=== PATIENT | female | born 1980 | race Two or more races ===

== ENCOUNTER 2016-11-11 15:05 | Emergency (ER) | payer SELFPAY ==
[2016-11-11 16:00] LABS: OBC FLU VALID
[2016-11-11 16:58] LABS: BASO # 0.1 x10^3/uL (0.0-0.2); BASO % 1 % (0-3); EOS % 0 % (0-3); HEMATOCRIT 38.3 % (36.0-47.0); HEMOGLOBIN 12.8 g/dL (12.0-15.5); LYMPH # 0.9 x10^3/uL (1.0-4.8); LYMPH % 6 % (24-48); MEAN CORPUSCULAR HEMOGLOBIN 29 pg (25-35); MEAN CORPUSCULAR HGB CONC 34 g/dL (31-37); MEAN CORPUSCULAR VOLUME 85 fL (79-100); MONO % 5 % (0-9); NEUT % 88 % (31-73); PLATELET COUNT 184 x10^3/uL (140-400); RED BLOOD COUNT 4.48 x10^6/uL (3.50-5.40); RED CELL DISTRIBUTION WIDTH 13.1 % (11.5-14.5); WHITE BLOOD COUNT 13.9 x10^3/uL (4.0-11.0)
[2016-11-11] MEDS ORDERED: IV NORMAL SALINE 1000ML BAG 1,000 ML IV ONE (17:00)
[2016-11-11] MEDS ORDERED: METOCLOPRAMIDE HCL 10 MG/2 ML VIAL. IV ONE (17:00)
[2016-11-11] MEDS ORDERED: KETOROLAC TROMETHAMINE 30 MG/ML SYRINGE. IV ONE (17:00)
[2016-11-11] MEDS ORDERED: DEXAMETHASONE SOD PHOS 20 MG/5 ML VIAL. IV ONE (17:00)
[2016-11-11] MEDS ORDERED: DIPHENHYDRAMINE 50 MG/ML VIAL IVP ONE (17:00)
[2016-11-11 17:13] LABS: CREATININE 0.8 mg/dL (0.6-1.0); GFR 81.2; POTASSIUM 4.2 mmol/L (3.5-5.1)
[2016-11-11 17:32] LABS: BILIRUBIN,URINE NEGATIVE (NEG); GLUCOSE,URINE NEGATIVE (NEG); NITRITE,URINE NEGATIVE (NEG); PH,URINE 7.5; PROTEIN,URINE NEGATIVE (NEG-TRACE); UROBILINOGEN,URINE 0.2 mg/dL (0.2 mg/dL)
[2016-11-11 17:42] LABS: BACTERIA,URINE FEW /HPF (0-FEW); SQUAMOUS EPITHELIAL CELL,UR MOD /LPF
[2016-11-11 17:43] LABS: NEG OBC UR NEG; POS OBC UR POS
[2016-11-11 17:53] LABS: % BASOS 1 % (0-3); PLT ESTIMATE ADEQUATE (ADEQUATE)
--- NOTE | 2016-11-11 18:04 | RAD ---
PROCEDURE CT scan of the head without contrast 11/11/2016 HISTORY Severe headache with dizziness and lightheadedness since earlier today. TECHNIQUE Unenhanced contiguous, 5 millimeter axial sections were obtained through the head. One or more of the following individualized dose reduction techniques were utilized for this study: 1. Automated exposure control. 2. Adjustment of the mA and/or kV according to patient size. 3. Use of iterative reconstruction technique. FINDINGS Comparison study is dated 02/04/2007. The ventricles and sulci are within normal limits in size and configuration. No area of abnormal attenuation is seen involving the brain parenchyma. No extra-axial fluid collection is seen. No skull fracture is noted. Mild to moderate mucosal thickening is seen involving the right maxillary sinus. IMPRESSION No acute intracranial abnormality is seen. Electronically signed by: Garcia Petty MD (Nov 11, 2016 18:03:07)
[2016-11-11 18:57] VITALS: BP 105/55
[2016-11-11] MEDS ORDERED: IBUP-1060 PO (19:01)
[2016-11-11] MEDS ORDERED: HYDR-971 PO (19:01)
[2016-11-11] MEDS ORDERED: ONDA4TAB7 PO (19:01)
--- NOTE | 2016-11-11 19:01 | PHYS DOC ---
Past Medical History Past Medical History: No Pertinent History Past Surgical History: Other Additional Past Surgical Histo: leep procedure Alcohol Use: Occasionally Drug Use: None Adult General Chief Complaint Chief Complaint: DIZZY/LIGHT HEADED HPI HPI 36-year-old female who's had worsening headache throughout the day with multiple episodes of nausea and photophobia. She states she believes she had an episode like this about 5 years ago as well that resolved. She does not normally have significant migraine headaches. States she has body aches as well. She complains of subjective fever and chills. She denies any chest pain or shortness of breath. Patient is alert and oriented and able answer all my questions does not appear to be in any acute distress. She denies any significant health problems. Review of Systems Review of Systems Constitutional: Has fever and chills [] Eyes: Denies change in visual acuity, redness, or eye pain [] HENT: Denies nasal congestion or sore throat [] Respiratory: Denies cough or shortness of breath [] Cardiovascular: No additional information not addressed in HPI [] GI: Denies abdominal pain, has nausea, has vomiting, denies bloody stools or diarrhea [] : Denies dysuria or hematuria [] Musculoskeletal: Denies back pain or joint pain [] Integument: Denies rash or skin lesions [] Neurologic: Has headache, denies focal weakness, denies sensory changes [] Endocrine: Denies polyuria or polydipsia [] Current Medications Current Medications Current Medications Medications (Trade) Dose Ordered Sig/[facility] Start Time Stop Time Status Last Admin Dose Admin Dexamethasone Sodium Phosphate (Decadron) 10 mg 1X ONCE 11/11/16 17:00 11/11/16 17:01 DC 11/11/16 17:09 10 MG Diphenhydramine HCl (Benadryl) 25 mg 1X ONCE 11/11/16 17:00 11/11/16 17:01 DC 11/11/16 17:04 25 MG Ketorolac Tromethamine (Toradol) 30 mg 1X ONCE 11/11/16 17:00 11/11/16 17:01 DC 11/11/16 17:12 30 MG Metoclopramide HCl (Reglan) 10 mg 1X ONCE 11/11/16 17:00 11/11/16 17:01 DC 11/11/16 17:05 10 MG Sodium Chloride (Iv Sodium Chloride 0.9% 1000ml Bag) 1,000 ml @ 1,000 mls/hr 1X ONCE 11/11/16 17:00 11/11/16 17:59 DC 11/11/16 17:03 1,000 MLS/HR Allergies Allergies Allergies Coded Allergies Type Severity Reaction Last Updated Verified No Known Drug Allergies 04/17/15 No Physical Exam Physical Exam Constitutional: Well developed, well nourished, no acute distress, non-toxic appearance. [] HENT: Normocephalic, atraumatic, bilateral external ears normal, oropharynx moist, no oral exudates, nose normal. [] Eyes: PERRLA, EOMI, conjunctiva normal, no discharge. [] Neck: Normal range of motion, no tenderness, supple, no stridor. [] Cardiovascular:Heart rate regular rhythm, no murmur [] Lungs & Thorax: Bilateral breath sounds clear to auscultation [] Abdomen: Bowel sounds normal, soft, no tenderness, no masses, no pulsatile masses. [] Skin: Warm, dry, no erythema, no rash. [] Back: No tenderness, no CVA tenderness. [] Extremities: No tenderness, no cyanosis, no clubbing, ROM intact, no edema. [] Neurologic: Alert and oriented X 3, normal motor function, normal sensory function, no focal deficits noted. [] Psychologic: Affect normal, judgement normal, mood normal. [] Current Patient Data Vital Signs Vital Signs Date Time Temp Pulse Resp B/P Pulse Ox O2 Delivery O2 Flow Rate FiO2 11/11/16 18:57 107 16 105/55 98 Room Air 11/11/16 15:20 99.6 99.6 Lab Values Laboratory Tests Test 11/11/16 15:30 11/11/16 16:45 11/11/16 17:25 11/11/16 17:29 Influenza Type A Antigen Negative (NEGATIVE) Influenza Type B Antigen Negative (NEGATIVE) White Blood Count 13.9x10^3/uL (4.0-11.0) H Red Blood Count 4.48x10^6/uL (3.50-5.40) Hemoglobin 12.8g/dL (12.0-15.5) Hematocrit 38.3% (36.0-47.0) Mean Corpuscular Volume 85fL (79-100) Mean Corpuscular Hemoglobin 29pg (25-35) Mean Corpuscular Hemoglobin Concent 34g/dL (31-37) Red Cell Distribution Width 13.1% (11.5-14.5) Platelet Count 184x10^3/uL (140-400) Neutrophils (%) (Auto) 88% (31-73) H Lymphocytes (%) (Auto) 6% (24-48) L Monocytes (%) (Auto) 5% (0-9) Eosinophils (%) (Auto) 0% (0-3) Basophils (%) (Auto) 1% (0-3) Neutrophils # (Auto) 12.2x10^3uL (1.8-7.7) H Lymphocytes # (Auto) 0.9x10^3/uL (1.0-4.8) L Monocytes # (Auto) 0.7x10^3/uL (0.0-1.1) Eosinophils # (Auto) 0.0x10^3/uL (0.0-0.7) Basophils # (Auto) 0.1x10^3/uL (0.0-0.2) Segmented Neutrophils % 79% (35-66) H Band Neutrophils % 8% (0-9) Lymphocytes % 7% (24-48) L Monocytes % 5% (0-10) Basophils % 1% (0-3) Platelet Estimate Adequate (ADEQUATE) Sodium Level 137mmol/L (136-145) Potassium Level 4.2mmol/L (3.5-5.1) Chloride Level 100mmol/L (98-107) Carbon Dioxide Level 26mmol/L (21-32) Anion Gap 11 (6-14) Blood Urea Nitrogen 9mg/dL (7-20) Creatinine 0.8mg/dL (0.6-1.0) Estimated GFR (Cockcroft-Gault) 81.2 Glucose Level 109mg/dL (70-99) H Calcium Level 9.0mg/dL (8.5-10.1) Urine Collection Type Unknown Urine Color Yellow Urine Clarity Clear Urine pH 7.5 Urine Specific Howard 1.015 Urine Protein Negativemg/dL (NEG-TRACE) Urine Glucose (UA) Negativemg/dL (NEG) Urine Ketones (Stick) Negativemg/dL (NEG) Urine Blood Small (NEG) Urine Nitrite Negative (NEG) Urine Bilirubin Negative (NEG) Urine Urobilinogen Dipstick 0.2mg/dL (0.2 mg/dL) Urine Leukocyte Esterase Trace (NEG) Urine RBC 11-20/HPF (0-2) Urine WBC 1-4/HPF (0-4) Urine Squamous Epithelial Cells Mod/LPF Urine Bacteria Few/HPF (0-FEW) Urine Mucus Slight/LPF Urine Test Negative (NEG) POC Urine HCG, Qualitative Hcg negative (Negative) Laboratory Tests 11/11/16 16:45 Laboratory Tests 11/11/16 16:45 EKG EKG EKG as interpreted by me shows sinus tachycardia with a rate of 113 bpm. There are no acute ST findings seen on this EKG. This is a nonischemic EKG. Radiology/Procedures Radiology/Procedures CT of the head without contrast demonstrated the following: The ventricles and sulci are within normal limits in size and configuration. No area of abnormal attenuation is seen involving the brain parenchyma. No extra-axial fluid collection is seen. No skull fracture is noted. Mild to moderate mucosal thickening is seen involving the right maxillary sinus. Course & Med Decision Making Course & Med Decision Making Pertinent Labs and Imaging studies reviewed. (See chart for details) This 36-year-old female had a CT that demonstrated signs of a ongoing sinusitis and other acute findings. Her laboratory workup showed a slightly elevated white count. I controlled her pain with migraine cocktail and she felt significantly improved. I discussed the possibility of a lumbar puncture based upon her symptoms but the patient declined at this time and states she would feel comfortable seeing how she does in the next 1-2 days with strict instructions to return if her symptoms should worsen in any way. She acknowledged the risk of not undergoing lumbar puncture. She was given a course of Motrin and several tablets of [place] as well to help her rest. She was discharged without incident. Dragon Disclaimer Dragon Disclaimer This electronic medical record was generated, in whole or in part, using a voice recognition dictation system. Departure Departure Impression: Primary Impression: Headache Additional Impression: Nausea and vomiting Disposition: 01 HOME, SELF-CARE Admitting Physician: Other Condition: STABLE Referrals: MADISON ESPINOZA MD (PCP) Patient Instructions: General Headache Without Cause, [id number] Additional Instructions: Please take your medications as prescribed. Please rest and continue to drink plenty of fluids. Return to the ER if you develop any worsening of your symptoms. Scripts Ibuprofen 800 Mg [id number] Mg PO PRN Q6HRS PRN INFLAMMATION #20 TAB Prov:MORRIS PARKS DO 11/11/16 Hydrocodone/Apap 5-325 ([place] 5-325 Tablet)1 Each Tablet1 Tab PO PRN Q6HRS PRN PAIN #8 TAB Prov:MORRIS PARKS DO 11/11/16 Ondansetron Hcl (Zofran)4 Mg Tablet4 Mg PO BID PRN NAUSEA/VOMITING #14 TAB Prov:MORRIS PARKS DO 11/11/16 Problem Qualifiers MORRIS PARKS DO Nov 11, 2016 19:01
--- NOTE | 2016-11-12 06:25 | EKG ---
[facility] [address] [place] [address] Test Date: 2016-11-11 Test Time: 15:35:17 Pat Name: CACHORRO NORRIS Department: Room: Gender: F Integration Specialist: : [id number] Requested By: MORRIS PARKS Order Number: [id number] Reading MD: Jai Vyas Measurements Intervals [place] Rate: 113 P: 48 NV: 164 QRS: 19 QRSD: 80 T: 28 QT: 308 QTc: 428 Interpretive Statements SINUS TACHYCARDIA NONSPECIFIC ST-T WAVE CHANGES. RI6.01 Unconfirmed report No previous ECG available for comparison Electronically Signed On 11-15-2016 13:50:45 CENTRAL SUPPLY NURSE by Jai Vyas
== END 2016-11-11 19:04 | disposition home or self-care (01) ==
LOC: ER 15:05
DX: R51 Headache (principal); R11.2 Nausea with vomiting, unspecified; D72.829 Elevated white blood cell count, unspecified; H53.149 Visual discomfort, unspecified; R50.9 Fever, unspecified
CPT/HCPCS: 36415; 70450; 80048; 81001; 81025; 82947; 84703; 85007; 85027; 87086; 87804; 93005; 96361; 96374; 96375; 99285; J1100; J1200; J1885; J2765; J7030